=== PATIENT | female | born 1985 | race Caucasian/White ===

== ENCOUNTER 2017-01-25 08:29 | Emergency (ER) | payer OTHER ==
[~2017-01-25] VITALS: Ht 177.8 cm; Wt 102.3 kg
[~2017-01-25 08:29] MED LIST: HYDR-4003 PO
[2017-01-25 08:30] VITALS: BP 129/93; PULSE 90; RESP 16; O2SAT 100
--- NOTE | 2017-01-25 08:43 | ED.REPORT ---
HPI-Back Pain Under 40 Date of Service Jan 25, 2017 ED Provider: Sree Uriostegui MD A 31 year old female with a history of kidney infection presents to the ED complaining of back pain. The pain is located in the low back and near the hips. This is described as "pressure" that began one week ago and has been worsening since. The pt also admits to numbness in her hands but denies dysuria , incontinence or lower extremity numbness/weakness. She denies recent falls or trauma. The pt has not experienced similar symptoms previously. Nursing Notes Stated Complaint: LOWER BACK PAIN/HIP PAIN Chief Complaint: Back Pain or Injury Nursing Notes Reviewed: Yes Allergies: Coded Allergies: morphine (Verified Allergy, Severe, itching, vomitting, 06/03/14) Penicillins (Verified Allergy, Intermediate, vomiting and itching, 06/02/14 ) iodine (Verified Allergy, Intermediate, skin rash, 06/03/14) patient states topical iodine only. gave patient contrast 06/03/14 without any complications.LL Scheduled Ciprofloxacin (Ciprofloxacin) 500 Mg Tablet 500 MG PO BID Scheduled PRN Hydrocodone-Acetaminophen 5-325 mg (Hydrocodone-Acetaminophen 5-325 mg) 1 Each Tablet 1-2 TABLET PO Q4H PRN PRN For Pain Ibuprofen (Ibuprofen) 800 Mg Tablet 800 MG PO TID PRN PRN For Pain General Time Seen by MD: 08:35 Chief Complaint Back pain Hx Obtained From: Patient Arrived By: Walk-in Sudden in Onset?: No Onset Occurred: 1 week ago Symptom Duration: Since onset Recent Healthcare: No recent doctor visit, No recent hospitalization Similar Sx Previous: No Past Medical History Past Medical History Obesity Kidney infections 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 Past Surgical History tubal ligation dental surgery less than 1 week ago Reports: Tonsillectomy Smoking History Current Every Day Smoker Social History Alcohol Use: Denies alcohol use Drug Use: THC Other Social History: Good social support 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 Skin: Denies Rash Physical Exam Initial Vital Signs Vital Signs (First) Date Time Temp Pulse Resp B/P Pulse Ox O2 Delivery O2 Flow Rate FiO2 01/25/17 08:30 36.8 90 16 129/93 100 Room Air Initial VS: Reviewed General/Constitutional: Awake, Alert Back: Atraumatic, No CVA tenderness reproducible left lower back tenderness positive stright leg raise at 45 degrees Neurologic: Oriented X3, Speech NL, No motor deficits, No sensory deficits Neck: Atraumatic, Supple, Full range of motion Respiratory / Chest: Atraumatic, Breath sounds NL, Breath sounds = bilat, No respiratory distress Cardiovascular: Heart rate NL, Regular rhythm, Heart sounds NL Abdomen: Atraumatic, Soft, Non-tender Lower Extremity / Pelvis / MS: Atraumatic, Neurologic intact, Vascular intact Head / Eyes: Atraumatic, Normocephalic, PERRL, EOMI ENT: Atraumatic, Airway patent, Mucous membranes moist Upper Extremity / MS: Atraumatic, Full range of motion Skin: Atraumatic, Color NL, No rash, Warm, Dry Psychiatric: Affect NL, Mood NL Interpretation & Diagnostics Lab Results Interpretation Test 01/25/17 11:02 Re-Eval/Medical Decision Med Decision/Clinical Course 31-year-old female with lower back pain 1 day. Her straight leg raise is positive. She has no red flag symptoms. Her urine does suggest UTI. She has no fevers abdominal pain or sign symptoms of sepsis. But after Toradol. Her pain is likely caused by sciatica. Though, her for UTI given urine. Discussed with patient and she would like to go home without any laboratory evaluations will return if she has any new or worsening pain, fevers, nausea vomiting, abdominal pain, weakness numbness tingling, incontinence, any other worsesymptoms. Keflex for UTI. Source of Hx: Old records Re-Evaluation/Progress : Time of Eval: 10:15 Patient Status: Condition improved Re-Evaluation/Progress Note: Pt rechecked, whose condition has improved. The diagnosis and plan for discharge are discussed. The pt understands and agrees with the plan. All questions are addressed at this time. Counseled Regarding: Diagnosis, Lab results, Need for follow-up, When/why to return to ED Discharge & Departure Impression: Primary Impression: Sciatica Laterality: unspecified laterality Qualified Code: M54.30 - Sciatica, unspecified side Additional Impression: UTI (urinary tract infection) Urinary tract infection type: site unspecified Hematuria presence: without hematuria Qualified Code: N39.0 - Urinary tract infection, site not specified Disposition: Home All VS Reviewed: Yes Condition: Stable Patient Instructions: Sciatica (ED), Urinary Tract Infection in Women (ED) Additional Instructions: Thank you for entrusting us with your care. Your evaluation was reassuring. Take Ciprofloxacin as prescribed. Take ibuprofen as directed for pain. Call your primary care physician to arrange a follow up appointment in the next several days. Return to the emergency department if you develop any new or worsening symptoms such as worsening pain, weakness, numbness, incontinence, fever or chills. Referrals: Violetta Lorenzo Attestation Portions of this note were transcribed by Baljit Reeves. I, Dr. Uriostegui personally performed the history, physical exam and medical decision-making; I reviewed and confirmed the accuracy of the information in the transcribed note. copies to: Violetta Lorenzo Ben M MD Jan 25, 2017 08:43 BALJIT REEVES Jan 25, 2017 09:43
[2017-01-25] MEDS ORDERED: CIPR-198 PO (09:59)
[2017-01-25] MEDS ORDERED: IBUP800T28 PO (09:59)
[2017-01-25 10:59] VITALS: BP 105/56; PULSE 72; RESP 12; O2SAT 97
[2017-01-25 11:19] LABS: APPEARANCE,URINE SLIGHTLY CLOUDY (CLEAR,HAZY); COLOR,URINE STRAW (YELLOW); OCCULT BLOOD,URINE NEGATIVE (NEGATIVE); PH,URINE 7.5 (5.0-8.0); UROBILINOGEN,URINE NORMAL (NORMAL)
== END 2017-01-25 11:10 | disposition home or self-care (01) ==
LOC: SED 08:29
DX: M54.30 Sciatica, unspecified side (principal); N39.0 Urinary tract infection, site not specified; R20.0 Anesthesia of skin; E66.9 Obesity, unspecified; F17.200 Nicotine dependence, unspecified, uncomplicated; Z86.19 Personal history of other infectious and parasitic diseases; Z90.89 Acquired absence of other organs; Z98.890 Other specified postprocedural states; Z88.0 Allergy status to penicillin; Z88.5 Allergy status to narcotic agent; Z88.8 Allergy status to other drugs, medicaments and biological substances
CPT/HCPCS: 81000; 81025; 87086; 87088; 96372; 99284; J1885